=== PATIENT | female | born 1965 | race African-American/Black ===

== ENCOUNTER 2023-11-14 13:02 | Outpatient (AMB) | payer OTHER, SELFPAY ==
--- NOTE | 2023-11-14 13:33 | A.OFFPC_ITS ---
Vital Signs 11/14/23 13:36 Height 5 ft 10.5 in Weight 176 lb BMI 24.9 BP 126/80 Blood Pressure Location Lt brachial Position Sitting Pulse 87 Pulse Source Pulse Oximeter Intake Visit Reasons: Annual PE Intake Note: Pt is here today for PE. Allergies No Known Allergies Allergy (Verified 11/14/23 13:40) Medication List - Last Reconciled 11/14/23 by Marina Ruiz MD Symbicort 160-4.5 mcg/actuation (budesonide-formoterol) 2 puffs inhalation BID NS Ventolin HFA 90 mcg/actuation (albuterol sulfate) 2 puffs inhalation Q6H PRN NS Tobacco use date assessed: 11/14/23 Dental Screening Dental Screen Date: 11/14/23 Did you have a dental visit in the last 12 months?: No Did you have a dental problem in the last 6 months where you did not have access to dental care?: Yes Was dental information given to patient?: Yes HPI Annual PE HPI Details Pt presents for PE. PFSH Medical History Normal pelvic exam Annual physical exam History of mammogram Goiter Chronic asthma COPD (chronic obstructive pulmonary disease) Asthma HTN (hypertension) Surgical History No pertinent past surgical history Social History Housing: House Patient Tobacco Use Status: Former Tobacco user Years Smoked: 30 years e-Cigarette/Vaping Use: Never Used service: No Current occupational status: employed Cognitive needs: No Hearing needs: No Vision needs: Yes Questionnaire PHQ-9 Over the last 2 weeks, how often have you been bothered by any of the following problems? 1. Little interest or pleasure in doing things: more than half the days 2. Feeling down, depressed, or hopeless: not at all 3. Trouble falling or staying asleep, or sleeping too much: several days 4. Feeling tired or having little energy: not at all 5. Poor appetite or overeating: several days 6. Feeling bad about yourself - or that you are a failure or have let yourself or your family down: not at all 7. Trouble concentrating on things, such as reading the newspaper or watching television: not at all 8. Moving or speaking so slowly that other people could have noticed. Or the opposite - being so fidgety or restless that you have been moving around a lot more than usual: not at all 9. Thoughts that you would be better off or of hurting yourself in some way: not at all Total score: 4 Depression Screening Interpretation: Negative Depression Screening Done: Yes Source: Developed by Drs. Quintin Gómez, Karyna Walton, Luis Escobedo and colleagues, with an educational lizzie from [employer]. Thrive Questionnaire Date Thrive assessed: 11/14/23 I am a: Patient What is your living situation today?: I have a steady place to live Within the past 12 months, did the food you bought not last and you didn't have the money to get more?: Never true Within the past 12 months, did you worry whether your food would run out before you got money to buy more?: Never true Do you have trouble paying for medicines?: No Do you have trouble getting transportation to medical appointments?: No Do you have trouble paying your heating and electricity bill?: No Do you have trouble taking care of your child, family member or friend?: No Do you have trouble with day-to-day activities such as bathing, preparing meals, shopping, managing finances, etc.?: No Are you currently unemployed and looking for a job?: No Are you interested in more education?: No Please select the resources that you would like help with: None THRIVE Score: 0 AUDIT C Alcohol Use Questionnaire (AUDIT-C) 1. How often do you have a drink containing alcohol?: Never 3. How often do you have six or more drinks on one occasion?: Never Total Score: 0 LANDRY-7 AMB Questionnaire LANDRY-7 Date LANDRY - 7 assessed: 11/14/23 Feeling nervous, anxious, or on edge: 0 = Not at all Not being able to stop or control worryin = Not at all Worrying too much about different things: 0 = Not at all Trouble relaxin = Not at all Being so restless that it is hard to sit still: 0 = Not at all Becoming easily annoyed or irritable: 0 = Not at all Feeling afraid as if something awful might happen: 0 = Not at all Total LANDRY-7 score (0-4 normal; 5-9 mild; 10-14 moderate; 15-21 severe): 0 Source: Developed by Drs. Quintin Gómez, Karyna Walton, Luis Escobedo and colleagues, with an educational lizzie from [employer]. ACT Questionnaire In the past 4 weeks, how much of the time did your asthma keep you from getting as much done at work, school or at home?: None of the time During the past 4 weeks, how often have you had shortness of breath?: Not at all During the past 4 weeks, how often did your asthma symptoms wake you up at night or earlier than usual in the morning?: Not at all During the past 4 weeks, how often have you had to use your rescue inhaler or nebulizer medication?: Not at all How would you rate your asthma control during the past 4 weeks?: Well controlled Score: 24 Review of Systems Const All systems reviewed & are unremarkable except as noted in HPI and below Reports no additional complaints Eyes Reports no additional complaints ENT Reports no additional complaints Card Reports no additional complaints Resp Reports no additional complaints GI Reports no additional complaints Reports no additional complaints Physical exam (Primary Care) Vital Signs: Last Vital Signs Pulse 87 11/14/23 13:36 BP 126/80 11/14/23 13:36 BMI result Body Mass Index 24.9 Tobacco/Smoking Status: Tobacco use Status Tobacco use date assessed 11/14/23 11/14/23 13:41 Patient Tobacco Use Status Former Tobacco user 11/14/23 13:33 e-Cigarette/Vaping Use Never Used 11/14/23 13:33 PHQ-9: PHQ-9 Score PHQ-9: Total score 4 11/14/23 14:23 Depression Screening Interpretation: Negative Thrive Assessment: Date of Thrive Assessment Date Thrive assessed 11/14/23 11/14/23 14:23 Const General: no acute distress HENMT Head: Yes normal to inspection General nose exam: Normal external nose present Face and sinus: Yes normal facial exam Mouth: Normal oral and palatal mucosa present Eyes General: appearance normal, both eyes and all related structures Neck Neck: Yes no lymphadenopathy and Yes supple Resp Effort & Inspection: normal respiratory effort Auscultation: clear to auscultation bilaterally Cardio Rhythm: regular rhythm Heart sounds: S1 normal heart sound present and S2 normal heart sound present GI Inspection: Yes normal to inspection Palpation (GI): Soft to palpation Percussion: Yes normal to percussion Auscultation: normal bowel sounds Assessment and Plan Assessment & Plan (1) Goiter: Comment: monika Gonsalves 09[birth year]20, retired Code(s): E04.9 - Nontoxic goiter, unspecified Plan: Check thyroid ultrasound and TSH level (2) Annual physical exam: Code(s): Z00.00 - Encounter for general adult medical examination without abnormal findings Plan: Well-balanced diet regular physical activity discussed with the patient she will schedule mammogram. Cologuard will be sent and she is up-to-date with the Pap by internet webmaster (3) COPD (chronic obstructive pulmonary disease): Code(s): J44.9 - Chronic obstructive pulmonary disease, unspecified Plan: Continue Symbicort and ProAir as needed Orders: Orders Comprehensive [place]. Panel Fast Today E04.9 - Nontoxic goiter, unspecified, J44.9 - Chronic obstructive pulmonary disease, unspecified, Z00.00 - Encounter for general adult medical examination without abnormal findings Hemoglobin A1c Today E04.9 - Nontoxic goiter, unspecified, J44.9 - Chronic obstructive pulmonary disease, unspecified, Z00.00 - Encounter for general adult medical examination without abnormal findings Microalbumin, Random (w Creat) Today E04.9 - Nontoxic goiter, unspecified, J44.9 - Chronic obstructive pulmonary disease, unspecified, Z00.00 - Encounter for general adult medical examination without abnormal findings US thyroid Today E04.9 - Nontoxic goiter, unspecified Lipid Panel Today E04.9 - Nontoxic goiter, unspecified, J44.9 - Chronic obstructive pulmonary disease, unspecified, Z00.00 - Encounter for general adult medical examination without abnormal findings TSH reflex Free T4 Today E04.9 - Nontoxic goiter, unspecified, J44.9 - Chronic obstructive pulmonary disease, unspecified, Z00.00 - Encounter for general adult medical examination without abnormal findings Referrals Cologuard Test Z12.11 - Encounter for screening for malignant neoplasm of colon, Z12.12 - Encounter for screening for malignant neoplasm of rectum Medications: Changed From Symbicort 160-4.5 mcg/actuation (budesonide-formoterol) please complete fasting blood work 2 puffs inhalation BID 30.6 grams 0RF NS To Symbicort 160-4.5 mcg/actuation (budesonide-formoterol) 2 puffs inhalation BID 30.6 grams 6RF NS Refilled Ventolin HFA 90 mcg/actuation (albuterol sulfate) 2 puffs inhalation Q6H PRN 18 ea 4RF for wheezing NS Coding Level of Care Code Est Pt Prev Care 40-64y(40963) Diagnoses Goiter E04.9 Annual physical exam Z00.00 COPD (chronic obstructive pulmonary disease) J44.9
[2023-11-14 13:36] VITALS: BP 126/80; PULSE 87; BMI 24.9
== END 2023-11-14 14:22 | disposition home or self-care (01) ==
PROVIDERS: PCP Internal Medicine; Visit Provider Internal Medicine
DX: E04.9 Nontoxic goiter, unspecified (principal); Z00.00 Encounter for general adult medical examination without abnormal findings; J44.9 Chronic obstructive pulmonary disease, unspecified
CPT/HCPCS: 99396

== ENCOUNTER 2023-11-27 10:03 | Outpatient (REF) | payer OTHER, SELFPAY ==
[2023-11-27 13:24] LABS: MANUAL DIFF FLAG NO
[2023-11-27 13:42] LABS: Basophils Percent Auto 0.4 % (0-2); Eosinophils Absolute Auto 0.1 X10*3/uL (0.0-0.4); Eosinophils Percent Auto 1.4 % (0-4); Hematocrit 34.5 % (37.0-47.0); Imm Gran Abs Auto 0.03 X10*3/uL (0.00-0.03); Imm Gran Pct Auto 0.4 % (0.0-0.4); Lymphocytes Absolute Auto 2.4 X10*3/uL (1.2-4.9); Lymphocytes Percent Auto 30.6 % (20-40); Mean Corpuscular HGB Conc 31.9 g/dl (31.0-35.0); Mean Corpuscular Hemoglobin 23.5 pg (27.0-33.0); Mean Corpuscular Volume 73.7 fL (80.0-98.0); Mean Platelet Volume 10.1 fL (9.4-12.3); Monocytes Absolute Auto 0.8 X10*3/uL (0.1-1.2); Monocytes Percent Auto 10.1 % (2-11); Neutrophils Absolute Auto 4.5 x10*3/uL (2.0-8.3); Neutrophils Percent Auto 57.1 % (45-73); Platelet Count 315 X10*3/uL (160-400); Red Blood Count 4.68 X10*6/uL (4.20-5.50); Red Cell Distribution Width 15.6 % (11.0-16.0); White Blood Count 7.9 X10*3/uL (4.8-10.8)
[2023-11-27 13:59] LABS: Estimated Average Glucose 111 mg/dL; Hemoglobin A1c % 5.5 % (<6.0)
[2023-11-27 14:05] LABS: Alanine Aminotransferase 15 U/L (0-31); Albumin Level 4.4 g/dL (3.5-5.0); Alkaline Phosphatase 57 U/L (39-117); Anion Gap 14 (12-20); Aspartate Amino Transferase 19 U/L (5-31); Bilirubin Total 0.4 mg/dL (0.0-1.0); Blood Urea Nitrogen 17 mg/dL (9-16); Carbon Dioxide 23 mmol/L (22-29); Chloride 111 mmol/L (96-108); Cholesterol 223 mg/dL (<200); Estimated Glomerular Filt Rate > 60; Glucose Fasting 88 mg/dL (60-99); HDL Cholesterol 66 mg/dL (>40); LDL Cholesterol Calculated 146 mg/dL (<100); Potassium 3.9 mmol/L (3.3-5.1); Sodium 144 mmol/L (135-145); Total Protein 7.2 g/dL (6.5-8.0); Triglycerides 59 mg/dL (<150)
[2023-11-27 14:20] LABS: Microalbum/Creatinine Ratio Ur 7.9 ug/mg cr (<30)
[2023-11-27 14:22] LABS: TSH reflex Free T4 3.23 uIU/mL (0.32-4.0)
== END 2023-11-27 10:04 | disposition home or self-care (01) ==
LOC: HO.HMGCLDS 10:03
PROVIDERS: PCP Internal Medicine; Visit Provider Internal Medicine
DX: Z00.00 Encounter for general adult medical examination without abnormal findings (principal); E04.9 Nontoxic goiter, unspecified; J44.9 Chronic obstructive pulmonary disease, unspecified
CPT/HCPCS: 36415; 80053; 80061; 82043; 82570; 83036; 84443; 85025

== ENCOUNTER 2023-12-11 10:32 | Outpatient (REF) | payer OTHER, SELFPAY ==
--- NOTE | ~2023-12-11 | US_ITS ---
EXAMINATION: US THYROID CLINICAL INFORMATION: Nontoxic goiter, unspecified. COMPARISON: None available. TECHNIQUE: Linear transducer cortez-scale and color Doppler examination with attention to the region of the thyroid. FINDINGS: SIZE: Measurements of the thyroid lobes and nodules are given in sagittal, anteroposterior and transverse dimensions respectively. Right Thyroid Lobe: 6.2 x 2.4 x 1.6 cm, volume 12.2 mL. Parenchyma: The gland echotexture is homogeneous. Thyroid vascularity is normal. Left Thyroid Lobe: 5.2 x 1.3 x 2.0 cm, volume 7.2 mL. Parenchyma: The gland echotexture is homogeneous. Thyroid vascularity is normal. Isthmus: 0.9 cm in maximum AP dimension. Estimated total number of nodules greater than or equal to 1 cm: 0. Flatbed Driver nodules are described as follows: 1. Location: Right upper pole. Size: 0.8 x 0.4 x 0.7 cm, volume 0.10 mL. Nodule characteristics: Composition: Cystic(0). ACR TI-RADS total points: 0 ACR TI-RADS category: 1 NODES: No lymphadenopathy is seen in the tissue surrounding the thyroid gland. US/US thyroid IMPRESSION: 0.8 cm right TR1 thyroid nodule. Right lobe larger than left thyroid lobe. ACR TI-RADS RECOMMENDATION REFERENCE: Ultrasound-guided fine-needle aspiration, followup ultrasound, no further follow up. * TR1 (0 point) and TR2 (2 points): No FNA or follow up. * TR3 (3 points): FNA if more than or equal to 2.5 cm in maximum dimension, followup ultrasound in 1, 3 and 5 years if 1.5 to 2.4 cm in maximum dimension. * TR4 (4-6 points): FNA if more than or equal to 1.5 cm in maximum dimension, followup ultrasound in 1, 2, 3 and 5 years if 1 to 1.4 cm in maximum dimension. * TR5 (more than or equal to 7 points): FNA if more than or equal to 1 cm in maximum dimension, followup ultrasound every year for 5 years if 0.5 to 0.9 cm in maximum dimension. * TR3, TR4 or TR5 nodules that are below the size threshold for followup receive no follow up.
== END 2023-12-11 10:33 | disposition home or self-care (01) ==
LOC: HO.HMGCX 10:32
PROVIDERS: PCP Internal Medicine; Visit Provider Internal Medicine
DX: E04.9 Nontoxic goiter, unspecified (principal)
CPT/HCPCS: 76536

== ENCOUNTER 2024-09-16 11:07 | Outpatient (REF) | payer OTHER, SELFPAY ==
[2024-09-16 13:02] LABS: MANUAL DIFF FLAG NO
[2024-09-16 13:25] LABS: Basophils Percent Auto 0.5 % (0-2); Eosinophils Absolute Auto 0.1 X10*3/uL (0.0-0.4); Hematocrit 39.5 % (37.0-47.0); Hemoglobin 12.6 g/dl (12.0-16.0); Imm Gran Abs Auto 0.02 X10*3/uL (0.00-0.03); Imm Gran Pct Auto 0.3 % (0.0-0.4); Lymphocytes Absolute Auto 1.7 X10*3/uL (1.2-4.9); Mean Corpuscular HGB Conc 31.9 g/dl (31.0-35.0); Mean Corpuscular Hemoglobin 23.2 pg (27.0-33.0); Mean Corpuscular Volume 72.9 fL (80.0-98.0); Mean Platelet Volume 10.1 fL (9.4-12.3); Monocytes Absolute Auto 0.6 X10*3/uL (0.1-1.2); Monocytes Percent Auto 10.4 % (2-11); Neutrophils Absolute Auto 3.6 x10*3/uL (2.0-8.3); Neutrophils Percent Auto 59.8 % (45-73); Platelet Count 351 X10*3/uL (160-400); Red Blood Count 5.42 X10*6/uL (4.20-5.50); Red Cell Distribution Width 15.3 % (11.0-16.0)
[2024-09-16 13:46] LABS: Alanine Aminotransferase 27 U/L (0-31); Albumin Level 4.8 g/dL (3.5-5.0); Alkaline Phosphatase 74 U/L (39-117); Anion Gap 14 (12-20); Aspartate Amino Transferase 25 U/L (5-31); Bilirubin Total 0.2 mg/dL (0.0-1.0); Blood Urea Nitrogen 21 mg/dL (9-16); Calcium 9.9 mg/dL (8.4-10.2); Carbon Dioxide 26 mmol/L (22-29); Chloride 106 mmol/L (96-108); Estimated Glomerular Filt Rate 58; Glucose Random 94 mg/dL (60-115); Potassium 4.8 mmol/L (3.3-5.1); Sodium 141 mmol/L (135-145); Total Protein 8.3 g/dL (6.5-8.0)
[2024-09-16 14:06] LABS: Vitamin D 25-OH Total 10.5 ng/mL (>30)
[2024-09-16 14:26] LABS: Vitamin B12 405 pg/mL (200-900)
== END 2024-09-16 11:08 | disposition home or self-care (01) ==
LOC: HO.HMGCLDS 11:07
PROVIDERS: PCP Internal Medicine; Visit Provider Internal Medicine
DX: R00.2 Palpitations (principal)
CPT/HCPCS: 36415; 80053; 82306; 82607; 82746; 84443; 85025; 96127; 99212

== ENCOUNTER 2024-09-16 11:07 | Outpatient (AMB) | payer OTHER, SELFPAY ==
[2024-09-16 11:14] VITALS: BP 124/74; PULSE 87; RESP 18; TEMP 36.7; O2SAT 96; BMI 23.6
--- NOTE | 2024-09-16 11:14 | A.OFFPC_ITS ---
Vital Signs 09/16/24 11:14 Height 5 ft 10.5 in Weight 167 lb BMI 23.6 BP 124/74 Blood Pressure Location Lt brachial Position Sitting Respiration 18 Pulse 87 Pulse Source Pulse Oximeter Temp 98.1 F Temp Source Oral Pulse Oximetry (%) 96 Oxygen Delivery Method Room Air Intake Visit Reasons: Followup palpiations Intake Note: Pt is here today for a follow up visit on palpitations. Allergies amoxicillin Adverse Reaction (Verified 09/16/24 11:17) yeast infection Tobacco use date assessed: 09/16/24 Dental Screening Dental Screen Date: 09/16/24 Did you have a dental visit in the last 12 months?: Yes Did you have a dental problem in the last 6 months where you did not have access to dental care?: No Was dental information given to patient?: Patient has dentist HPI Followup palpiations HPI Details Pt c/o palpitations and irregular heart beats skipping beats on and off 3 x since last week, symptoms are not related to physical activity and last up to 20 min. Patient denies chest pain, shortness or breath, pleurisy, nausea vomiting diaphoresis related to the symptoms. she denies being under lot of stress or change in sleeping pattern or diet. Patient had similar symptoms last year , was seen in the ER and had negative workup. 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 [facility] Medical History Normal pelvic exam Annual physical exam History of mammogram Goiter Chronic asthma COPD (chronic obstructive pulmonary disease) Asthma HTN (hypertension) Surgical History No pertinent past surgical history Social History Housing: House Patient Tobacco Use Status: Former Tobacco user Years Smoked: 30 years e-Cigarette/Vaping Use: Never Used service: No Current occupational status: employed Cognitive needs: No Hearing needs: No Vision needs: Yes Questionnaire PHQ-9 Over the last 2 weeks, how often have you been bothered by any of the following problems? 1. Little interest or pleasure in doing things: more than half the days 2. Feeling down, depressed, or hopeless: not at all 3. Trouble falling or staying asleep, or sleeping too much: not at all 4. Feeling tired or having little energy: not at all 5. Poor appetite or overeating: not at all 6. Feeling bad about yourself - or that you are a failure or have let yourself or your family down: not at all 7. Trouble concentrating on things, such as reading the newspaper or watching television: not at all 8. Moving or speaking so slowly that other people could have noticed. Or the opposite - being so fidgety or restless that you have been moving around a lot more than usual: not at all 9. Thoughts that you would be better off or of hurting yourself in some way: not at all Total score: 2 Depression Screening Interpretation: Negative Depression Screening Done: Yes 17572 - PHQ-9 Billing: Yes Source: Developed by Drs. Quintin Gómez, Karyna Walton, Luis Escobedo and colleagues, with an educational lizzie from [employer]. Thrive Questionnaire Date Thrive assessed: 09/16/24 I am a: Patient What is your living situation today?: I choose not to answer this question Within the past 12 months, did the food you bought not last and you didn't have the money to get more?: I choose not to answer this question Within the past 12 months, did you worry whether your food would run out before you got money to buy more?: I choose not to answer this question Do you have trouble paying for medicines?: I choose not to answer this question Do you have trouble getting transportation to medical appointments?: I choose not to answer this question Do you have trouble paying your heating and electricity bill?: I choose not to answer this question Do you have trouble taking care of your child, family member or friend?: I choose not to answer this question Do you have trouble with day-to-day activities such as bathing, preparing meals, shopping, managing finances, etc.?: I choose not to answer this question Are you currently unemployed and looking for a job?: I choose not to answer this question Are you interested in more education?: I choose not to answer this question Please select the resources that you would like help with: None Currently or been in a relationship where the following occur: I choose not to answer THRIVE Score: 0 AUDIT C Alcohol Use Questionnaire (AUDIT-C) 1. How often do you have a drink containing alcohol?: Never 3. How often do you have six or more drinks on one occasion?: Never Total Score: 0 LANDRY-7 AMB Questionnaire LANDRY-7 Date LANDRY - 7 assessed: 09/16/24 Feeling nervous, anxious, or on edge: 0 = Not at all Not being able to stop or control worryin = Not at all Worrying too much about different things: 0 = Not at all Trouble relaxin = Not at all Being so restless that it is hard to sit still: 0 = Not at all Becoming easily annoyed or irritable: 0 = Not at all Feeling afraid as if something awful might happen: 0 = Not at all Total LANDRY-7 score (0-4 normal; 5-9 mild; 10-14 moderate; 15-21 severe): 0 Source: Developed by Drs. Quintin Gómez, Karyna Walton, Luis Escobedo and colleagues, with an educational lizzie from [employer]. LANDRY-7 Assessment Billing LANDRY-7 Assessment Tool: LANDRY-7 Assessment 01971 Review of Systems Const All systems reviewed & are unremarkable except as noted in HPI and below Eyes Reports no additional complaints ENT Reports no additional complaints Card Reports no additional complaints Resp Reports no additional complaints GI Reports no additional complaints Reports no additional complaints Physical exam (Primary Care) Vital Signs: Last Vital Signs Temp 98.1 F 09/16/24 11:14 Pulse 87 09/16/24 11:14 Resp 18 09/16/24 11:14 BP 124/74 09/16/24 11:14 Pulse Ox 96 09/16/24 11:14 Oxygen Delivery Method Room Air 09/16/24 11:14 BMI result Body Mass Index 23.6 Tobacco/Smoking Status: Tobacco use Status Tobacco use date assessed 09/16/24 09/16/24 11:20 Patient Tobacco Use Status Former Tobacco user 09/16/24 11:20 e-Cigarette/Vaping Use Never Used 09/16/24 11:20 PHQ-9: PHQ-9 Score PHQ-9: Total score 2 09/16/24 11:20 Depression Screening Interpretation: Negative Thrive Assessment: Date of Thrive Assessment Date Thrive assessed 09/16/24 09/16/24 11:20 Currently or been in a relationship where the following occur: I choose not to answer Const General: no acute distress HENMT Head: Yes normal to inspection Ears: hearing grossly normal bilaterally Eyes General: appearance normal, both eyes and all related structures Resp Effort & Inspection: normal respiratory effort Auscultation: clear to auscultation bilaterally Cardio Rhythm: regular rhythm Heart sounds: S1 normal heart sound present and S2 normal heart sound present GI Inspection: Yes normal to inspection Palpation (GI): Soft to palpation Percussion: Yes normal to percussion Auscultation: normal bowel sounds Coding Level of Care Code Est Pt Level 3 (93408) Diagnoses Palpitations R00.2 Additional Codes LANDRY-7 Assessment Billing - LANDRY-7 Assessment Tool: LANDRY-7 Assessment 56787 ([id number]) PHQ-9 - 15055 - PHQ-9 Billing: Yes ([id number]) Assessment & Plan Assessment & Plan (1) Palpitations: Code(s): R00.2 - Palpitations Category: Medical Plan: EKG showed normal sinus rhythm no ST-T changes. Obtain 3 day Holter and echocardiogram patient will have a blood work including TSH CBC and comprehensive panel. She will follow-up in 1 month Orders: Orders CA echo transthoracic complete Today R00.2 - Palpitations ECG 3 day holter monitor Today R00.2 - Palpitations Complete Blood Count Auto Diff Today R00.2 - Palpitations TSH reflex Free T4 Today R00.2 - Palpitations Vitamin B12 and Folate Today R00.2 - Palpitations Comprehensive Met. Panel Today R00.2 - Palpitations Vitamin D 25-OH Total Today R00.2 - Palpitations
--- OUTSIDE RECORDS SUMMARY | 2024-09-16 13:25 | XMS_ITS | Clinical Summary ---
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 Role Phone Unavailable Primary Care Provider Unavailabl e Social History Tobacco Use Types Packs/Day Years Used Date Smoking Tobacco: Never Assessed Comments Unknown Sex and Gender Information Value Date Recorded Sex Assigned at Not on file Legal Sex Female 8:44 PM EST Gender Identity Not on file Sexual Orientation Not on file Plan of Treatment Health Maintenance Due Date Last Done Comments DTaP,Tdap,and Td Vaccines (1 - Tdap) 02/21/1983 Cervical Cancer Screening: P ap Smear 02/21/1985 Pneumococcal Vaccine: 50+ Ye ars (1 of 1 - PCV) 02/21/2014 Zoster Vaccines (1 of 2) 02/21/2014 Colorectal Cancer Screening: Colonoscopy 06/03/2022 Depression Screening 06/03/2022 HIV Screening 06/03/2022 Hepatitis C Screening 06/03/2022 Social Influencers of Health Screening 06/03/2022 Breast Cancer Screening 08/14/2023 08/14/2021 COVID-19 Vaccine ( - 2023-2 5 season) 2024 Influenza Vaccine (#1) 2024 RSV Immunization Patients 60 + Years Old (1 - 1-dose 75+ series) 02/21/2039 HIB Vaccines Aged Out No longer eligi ble based on patient's age to complete this topic HPV Vaccines Aged Out No longer eligi ble based on patient's age to complete this topic Hepatitis A Vaccines Aged Out No long er eligible based on patient's age to complete this topic Hepatitis B Vaccines Aged Out No long er eligible based on patient's age to complete this topic IPV Vaccines Aged Out No longer eligi ble based on patient's age to complete this topic MMR Vaccines Aged Out No longer eligi ble based on patient's age to complete this topic Meningococcal ACWY Vaccine Aged Out N o longer eligible based on patient's age to complete this topic Meningococcal B Vacine Aged Out No lo nger eligible based on patient's age to complete this topic Pneumococcal Vaccine: Pediat rics (0 to 5 Years) and At-Risk Patients (6 to 64 Years) Aged Out No longer eligi ble based on patient's age to complete this topic RSV Immunization Patients Un yaneth 20 months Aged Out No longer eligible b ased on patient's age to complete this topic Varicella Vaccines Aged Out No longer eligible based on patient's age to complete this topic Procedures Procedure Name Priority Date/Time Associated Diagnosis Comments [facility] SCREENING DIGITAL Routine 08/14/2021 12:15 PM EST Encounter for screening mammogram for malignant neoplasm of breast from Last 3 Months or Most Recently Relevant to Health Maintenance Results * [facility] SCREENING DIGITAL (08/14/2021 12:15 PM EST) Anatomical Region Laterality Modality Mammography 08/11/2021 9:20 AM EST Narrative 08/14/2021 12:15 PM EST [facility] Diagnostic Imaging Department [address] [place] [address] Patient: ??RONALDO GUILLEN ?/Age/Sex: 1965 - 56 - F Unit#: ??[id number] ? Location/Status: ??SPDIMAM/REG CLI ? Mnemonic/Ordering Site: ??DIGSC/SPMAM Ordering Physician: ??HANK RUIZ MD Mehdi Screening Digital - 08/13/21838 History: Bilateral breast cancer screening. Technique: ??Digital mammography. Conventional CC and MLO projections with tomosynthesis MLO views and computer aided detection. Comparison: [facility] 09/26/2016 through 06/18/2010. Findings: ?? Breast tissue consists of fatty and fibroglandular elements (category b density) bilaterally (as calculated by [employer] Only[employer] software). There is no suspicious group of microcalcifications, mass, architectural distortion or suspicious change in breast tissue density. Impression: No evidence of malignancy. Breast cancer, if present, is more likely to be diagnosed at a smaller size and earlier stage with more frequent intervals of screening. ??Recommend annual or biennial mammography. BIRADS category 1; negative study, 3341F 39917, 19788 Note: Patient information entered into a reminder system with a target due date for the next mammogram: ??CPT II 7025F Dictating Physician: ??JAE PANIAGUA MD Electronically Signed by: ??JAE PANIAGUA MD Dic Date/Time: ??08/14/21 1211 Sign date/Time: ??08/14/21 1215 Procedure Note Jae Paniagua MD - 06/21/2022 [facility] Diagnostic Imaging Department [address] [place] [address] Patient: GUILLENRONALDOO.B./Age/Sex: 1965 - 56 - F Unit#: [id number] Location/Status: SPDIMA/[facility] CLI Mnemonic/Ordering Site: [facility] Ordering Physician: HANK RUIZ MD Mehdi Screening Digital - 08/13/21 - 39 History: Bilateral breast cancer screening. Technique: Digital mammography. Conventional CC and MLO projectionswith tomosynthesis MLO views and computer aided detection. Comparison: [facility] 09/26/2016 through 06/18/2010. Findings: Breast tissue consists of fatty and fibroglandular elements (category b density) bilaterally (as calculated by [employer]ta[employer]ware). There is no suspicious group of microcalcifications, mass, architectural distortion or suspicious change in breast tissue density. Impression: No evidence of malignancy. Breast cancer, if present, is more likely to be diagnosed at a smallersize and earlier stage with more frequent intervals of screening. Recommend annualor biennial mammography. BIRADS category 1; negative study, 3341F 30693, 97333 Note: Patient information entered into a reminder system with a target duedate for the next mammogram: CPT II 7025F Dictating Physician: JAE PANIAGUA MD Electronically Signed by: JAE PANIAGUA MD Dic Date/Time: 08/14/21 1211 Sign date/Time: 08/14/21 1215 Hank Ruiz MD IMG BI PROCEDURES Final Result from Last 3 Months or Most Recently Relevant to Health Maintenance
--- OUTSIDE RECORDS SUMMARY | 2024-09-16 13:25 | XMS_ITS | Data Portability ---
Author Organization [facility], [address] Address [address] [place] [address] Assessment No assessment recorded. Plan of Treatment Reminders Order Date Submit Date Provider Last Modified By Organization Details Last Modified Time Details Appointments None recorded. Lab urinalysis, dipstick 2022 023 [email or web address], [address] [place], [address], 3 09:34:13 culture, urine 2022 023 [place] [facility] [address] [place] [address], [place], [address], 3 06:08:40 Referral None recorded. Procedures None recorded. Surgeries None recorded. Imaging None recorded. Medication Orders Diflucan 150 mg tablet 2022 023 [id number], [address] [place], [address], 3 09:34:15 amoxicillin 875 mg-potassiu m clavulanate 125 mg tablet 2022 023 yestrella 5 [id number], [address] [place], [address], 3 08:47:27 prednisone 10 mg tablet 2022 023 yestrella 5 [id number], [address] [place], [address], 3 08:47:23 Patient TargetsNo targets recorded. Patient Instructions Encounter Date Encounter Id Patient Instructions Last Modified By Organization Details Last Modified Time 10/19/2022 [id number] Based on your presentation and exam, you are being diagnosed with Sinusitis. Rhinosinusitis is most often viral and will resolve on its own in 7-10 days. Symptoms that last longer than 2 weeks an antibiotic could be considered. Based on your presentation, and antibiotic was written. You were prescribed Prednisone - Here is some general Information regarding this medication. 1. Make sure you take with Food 2. Do not take right before bedtime -this should be taken during the day because it may make you a little more wired. May keep you from sleeping. 3. Prednisone will increase glucose -so if you are a diabetic then you will need to monitor your glucose closely. Please d/c if glucose goes above 300. 4. Do not take this medication with Ibuprofen The following are my recommendations to help your symptoms and to allow your condition to improve: 1. Drink plenty of fluids while you are ill- stay hydrated 2. Rest - don't overexert yourself - this includes sports and any gym routines. 3. I suggest taking an antihistamine - like Claritin, Zyrtec, or Benedryl 4. If you take OTC cold medication I would recommend Tea-Selzer Cold/Cough. 5. Mucinex with a lot of water is ok - if you are having trouble clearing your nasal passages of mucous. However, if you start to cough then discontinue - this can increase coughing due to a watery post nasal drip. 6. Saline Nasal [place] is recommended. Since an antibiotic was prescribed you need to complete the full course - this is important so you don't develop any antibiotic resistance to future infections. I advise taking a Probiotic like Florastor since you are on an antibiotic - this will help you re-colonize your body with the good bacteria. Typically, it will take 6 months for you to restore your normal body rhea after an antibiotic. Don't hesitate to be seen again if you develop: 1. Fever > 100.5 2. Worsening Headache 3. Stiff Neck 4. Worsening Cough or Shortness of breath 5. Visual Changes. The antibiotic should start to work in 4-5 days. You may not notice immediate response. Thank you for using [facility] today, please feel free to contact our office if you have any questions or concerns. [email or web address] Not available 10/19/2022 15:23:00 Reason for Referral None Reported. Results Created Date Observation Date Name Description Value Unit Range Abnormal Flag Note LastModifiedBy Organization Detail LastModifiedTime 06/18/2006/19/2023 URINE CULTU RE, ROUTI NE urine culture, routine FINAL REPORT Not Available [facility] ([facility]) [address] [facility] [address], [place], [address], 06/20/2023 06:08:40 06/18/2006/19/2023 URINE CULTU RE, ROUTI NE result 1 NO GROWTH Not Available [facility] ([facility]) [address] [facility] [address], [place], [address], 06/20/2023 06:08:40 06/18/2006/18/2023 urina lysis , dipst ick Unknown Analyte Light Yellow Not Available [address] [place], [address], 06/18/2023 08:52:16 06/18/2006/18/2023 urina lysis , dipst ick Unknown Analyte Slight ly Cloudy Not Available [address] [place], [address], 06/18/2023 08:52:16 06/18/2006/18/2023 urina lysis , dipst ick Unknown Analyte Negati ve Not Available [address] [place], [address], 06/18/2023 08:52:16 06/18/2006/18/2023 urina lysis , dipst ick Unknown Analyte Negati ve Not Available [address] [place], [address], 06/18/2023 08:52:16 06/18/2006/18/2023 urina lysis , dipst ick Unknown Analyte Negati ve Not Available [address] [place], [address], 06/18/2023 08:52:16 06/18/2006/18/2023 urina lysis , dipst ick Unknown Analyte 1.010 Not Available [facility] [address] [place], [address], 06/18/2023 08:52:16 06/18/2006/18/2023 urina lysis , dipst ick Unknown Analyte Trace- intact Not Available [address] [place], [address], 06/18/2023 08:52:16 06/18/2006/18/2023 urina lysis , dipst ick Unknown Analyte 6.0 Not Available [facility] [address] [place], [address], 06/18/2023 08:52:16 06/18/2006/18/2023 urina lysis , dipst ick Unknown Analyte Negati ve Not Available [address] [place], [address], 06/18/2023 08:52:16 06/18/2006/18/2023 urina lysis , dipst ick Unknown Analyte 0.2 E.U./d L Not Available [address] [place], [address], 06/18/2023 08:52:16 06/18/2006/18/2023 urina lysis , dipst ick Unknown Analyte Negati ve Not Available [address] [place], [address], 06/18/2023 08:52:16 06/18/20 23 06/18/2023 urina lysis , dipst ick Unknown Analyte Negati ve Not Available [address] [place], [address], 06/18/2023 08:52:16 Result Notes None recorded. Problems Name Problem SNOMED Code Status Onset Date Resolution Date Notes Provider Name and Address Organization Details Recorded Time Asthma [id number] Active FERNANDA Duong - [facility] 10/19/2022 15:05:56 Notes:enlarge thyroid- board dolores hypothyroidism Problem Notes None recorded. Medical Equipment None Reported. Allergies No known drug allergies Medications Name Sig Start Date Stop Date Status Note LastModified by Organization Details LastModified Time prednisone 10 mg tablet 3 TABS DAILY X 3 DAYS, 2 TABS DAILY X 3 DAYS, 1 TAB DAILY X 3 DAYS 06/18 completed Not Available Not Available Not Available Diflucan 150 mg tablet take one tablet now , repeat in 72 hours 2022 active Not Available Not Available Not Avai lable amoxicillin 875 mg-potassiu m clavulanate 125 mg tablet TAKE 1 TABLET BY MOUTH TWICE A DAY FOR 10 DAYS 06/18 completed Not Available Not Available Not Available Ventolin HFA 90 mcg/actuati on aerosol inhaler PLEASE SEE ATTACHED FOR DETAILED DIRECTION S active Not Available Not Available No t Available Benadryl active Not Available Not Avai lable Not Available Symbicort 160 mcg-4.5 mcg/actuati on HFA aerosol inhaler 2 PUFF INHALED 2 TIMES A DAY PLEASE COMPLETE FASTING BLOOD WORK active Not Available Not Available No t Available Vitals Date Recorded Body height Body mass index (BMI) Body weight Pain severity - 0-10 verbal numeric rating [Score] - Reported Respiratory rate Heart rate Body temperature Oxygen saturation Oxygen saturation in Arterial blood by Pulse oximetry Systolic blood pressure Diastolic blood pressure Provider Name and Address Organization Details Last Updated DateTime 3 179.07 cm 25.2 kg/m2 97051.4 4 g 0 17 /min 98 /min 97.3 [degF] 99 % 99 % 137 mm[Hg] 73 mm[Hg] MADELINE MICHAEL - [facility] 04/20/202 3 15:09:12 Date Recorded Body height Body mass index (BMI) Body weight Pain severity - 0-10 verbal numeric rating [Score] - Reported Body temperature Respiratory rate Heart rate Systolic blood pressure Diastolic blood pressure Provider Name and Address Organization Details Last Updated DateTime 3 179.07 cm 24.9 kg/m2 50664.2 6 g 0 97.9 [degF] 19 /min 82 /min 134 mm[Hg] 79 mm[Hg] Ashlee Alicia PA - [facility] 3 08:54:24 Social History Question Answer Notes LastModified by Organizat ion Details LastModified Time Tobacco Smoking Status Current Every Day Smoker MADELINE viramontes PA - [facility] 10/19/2022 15:06:27 What Is Your Level Of Alcohol Consumption? None Information not available 10/19/2022 Have You Had A Flu Shot This Season? No Does Not Do The Flu Vaccines Information not available 06/18/2023 Have You Had Direct Contact, Or Contact During Intimacy, With Monkeypox Rash, Scabs, Or Body Fluids From A Person With Monkeypox? No Information not available 10/19/2022 What Was The Date Of Your Most Recent Tobacco Screening? 06/18/2023 Information not available 06/18/2023 How Much Tobacco Do You Smoke? 0.5 PPD Information not available 10/19/2022 Do You Use Any Illicit Or Recreational Drugs? No Information not available 10/19/2022 Have You Recently Traveled Abroad? No Information not available 10/19/2022 Do You Or Have You Ever Used Any Other Forms Of Tobacco Or Nicotine? No Information not available 10/19/2022 Sex: Unknown Functional Status None recorded. Mental Status None recorded. Family History Relationship Description Onset Age of this Age Resolved Age Notes LastModified by Organization Details LastModified Time Mother Diabetes mellitus [email or web address] Not available 06/18 08:50:54 Unspecified Relation Diabetes mellitus aunt [email or web address] Not available 06/18 08:51:09 Medical History No medical history recorded. Gynecological HistoryNo gynecological history recorded. Obstetrics History GPAL:G 0 P 0 0 0 0 Immunizations Vaccine Type Date Status Note Provider Nam e and Address Organization Details Recorded Time Tdap 05/02/2012 completed FERNANDA Clemente - [facility] 10/19/2022 15:04:53 Past Encounters Encounter ID Performer Location Encounter Start Date Encounter Closed Date Diagnosis/Indication Diagnosis SNOMED-CT Code Diagnosis ICD10 Code Diagnosis Note [id number] [address] [facility] [address] [facility] [place] [address] 09/10/2020 11:49:02 09/10/2020 13:54:19 [id number] FERNANDA MAK [address] [facility] [address] [facility] [place] [address] 10/19/2022 14:53:17 10/19/2022 15:25:08 Acute sinusitis 78109615 J01.90 Per your request - the prednisone to help with the facial pressure and wheezing. You mention that this is what your PCP usually gives you. Wheezing 38944066 R06.2 Take your Symbicort and Nebulizer at home. Follow up if you have anyShortne ss of BreathFeve rIncreased Wheezing. [id number] Karoline Huerta NP [address] [facility] [address] [facility] [place] [address] 06/18/2023 08:04:50 06/18/2023 09:35:57 Dysuria 87564640 R30.0 You are going to be treated for a Urinary Tract Infection. The following are recommenda tions to help with your symptoms and recovery:1 . Drink Plenty of fluids - Stay hydrated2. Finish full antibiotic course3. I recommend starting a Probiotic - I recommend Florastor4 . If you take Azo - this will help the burning and urgency feeling - just be aware it will turn your urine bright yellow. I would not hesitate to be seen again if you develop:1. Severe Back Pain2. Abdominal Pain3. Nausea and Vomiting4. Vaginal Discharge or Bleeding5. Fever > 101.0 You symptoms should improve within 72 hours for a typically UTI. If a urine culture was sent out to the lab for you we should get the results back within 4 days. This will be able to prove that your symptoms are caused by a UTI and it will also verify that the correct antibiotic was prescribed . Thank you for using [facility] - please don't hesistate to call our office if you have any questions or concerns. Health Concerns Section Related Observation LastModified by Organization Detai ls LastModified Time None Recorded Concern Status LastModified by Organization Details LastModified Time None Recorded Advance Directives Directive None Recorded Payers Encounter Date Sequence Insurance Name Policy Number Policy Camarena Covered Member ID Camarena Member ID Guarantor Name 09/10/2020 1 [facility] [id number] Twila Cota [id number] Twila Cota 10/19/2022 1 [facility] ([facility] KYUNG Cota [id number] Twila Cota 06/18/2023 1 [facility] ([facility] [place] KYUNG Cota [id number] Twila Cota Notes Date Note Type Note Provider Name and Address Organization Details Recorded Time 3 text/html Sinus Complaints UCReported bypatient.Location:left side; right side Associated Symptoms:no fever; no difficulty breathing; no nausea or vomiting; no sore throat;nasal discharge from both nostrils;nasal passage blockage bilaterally;cough Onset/Timing:initially started 3weeks ago; progressively worse over last 6days Context:worse with seasonal allergen exposure Alleviating factors:BenedrylNotes:The patient has bad allergies. She states that she has been fighting those for a while. She states in the last 6 days increased sinus pressure and congestion. Clogged. No drainage in your thought. Mucous has turn to a yellow color. The patient reports asthma in her 30's. Has been diagnosed with chronic bronchitis. Just is bring up mucous - yellow - loose. Rattle in the chest. The patient reports no ear pain or sore throat. FERNANDA MAK [address] [place], [address], PA - [facility] 10/19/2022 15:25:02 3 text/html UTI female UCReported bypatient.source of patient informationInformation obtained from patient; Patient arrived at Urgent Care ambulatory UTI Symptoms:no blood in the urine; no vaginal discharge; no pain in the flank; no fever/chills; no incontinence; no recurrent UTI;urgency;burning sensation during urination Severity:moderate Duration:started ; 2 weeks Modifying Factors:nothing gives relief UTI went across the street and was diagnosed with UTI. they gave you treatment, treatment failed. UTI symptoms still present. (1 month ago) went back about 2 weeks ago. with the same symptoms. Karoline Huerta NP [address] [place], [address], PA - [facility] 06/18/2023 09:34:53 OBGyn Episode No OBEpisode recorded.
== END 2024-09-16 12:09 | disposition home or self-care (01) ==
LOC: HO.HMCC 11:08
PROVIDERS: PCP Internal Medicine; Visit Provider Internal Medicine
DX: R00.2 Palpitations (principal)

== ENCOUNTER → 2024-10-08 08:55 | Outpatient (REF) | payer OTHER, SELFPAY ==
--- NOTE | 2024-10-08 08:58 | CA_ITS ---
Transthoracic Echocardiogram Patient (Last, First, Middle): Twila Cota, Gender: Female Date of : 1965 Age: 59 Procedure Date: 10/08/2024 Procedure Type: Transthoracic Echocardiogram Location: OP Height: 177.8 cm Weight: 75.75 kg BSA: 1.93 m2 Heart Rate: bpm BP: 124 / 74 mmHg Insurance Plan Specialist: DARRYL Referring MD: Marina Ruiz MD Regional Planner: Jorge Philip MD Symptoms: R00.2 - Palpitations Study Quality: Adequate ECG Rhythm: Sinus Conclusions: - 1. Normal LV ejection fraction of 65-70% with impaired relaxation filling pattern 2. Normal cardiac valvular Dopplers 3. Normal RV systolic pressure 4. No gross pericardial effusion Findings Left Ventricle Normal left ventricular size, thickness, and systolic function. The visually estimated ejection fraction is between 65-70%. Spectral Doppler is indicative of an impaired relaxation filling pattern. E/E prime ratio is between 8 and 15 consistent with indeterminate filling pressures. Right Ventricle Normal right ventricular cavity size and systolic function. Atria The left atrium is normal in size. There is no evidence of interatrial shunt. The right atrium is normal in size. Aortic Valve Normal aortic valve structure and function. There is no aortic valve stenosis. There is no aortic valve regurgitation. Mitral Valve Normal mitral valve structure and function. There is trace mitral valve regurgitation. There is no mitral valve stenosis. Pulmonic Valve The pulmonic valve is likely normal. Tricuspid Valve Normal tricuspid valve structure. There is trace tricuspid valve regurgitation. The right ventricular systolic pressure is normal. The right ventricular systolic pressure is 24 mmHg. Normal right atrial pressure. There is no evidence of pulmonary hypertension. Great Vessels All visible segments of the aorta are normal in size. The pulmonary artery was not well visualized. There is no dilatation of the ascending aorta measuring 3.20 cm. Venous The inferior vena cava is normal in size and collapses greater than 50% with inspiration. Pericardium/Pleural There is no evidence of pericardial effusion. Prior Study Comparison No prior study available for comparison. Measurements 2D Linear Measurements IVSd: 1.14 0.6-0.9/0.6-1.0 cm LVIDd: 3.82 3.9-5.3/4.2-5.9 cm LVIDd Index: 1.98 2.4-3.2/2.2-3.1 cm/m2 LVIDs: 2.15 2.0-3.6 cm LVPWd: 1.05 0.7-1.1 cm LA Diam: 4.00 2.7-3.8/3.0-4.0 cm LAIDs Index: 2.07 1.5-2.3 cm/m2 LV Mass: 167.79 67-162/88-224 g LV Mass Index: 86.94 43-95/49-115 g/m2 LVOT Diam: 2.10 3.0+(-)1.3 cm 2D Systolic Function EF 4C: 68.40 >55% EF 2C: 70.70 >55% EF BiP: 69.80 >55% Mitral Valve MV Pk E: 1.12 MV PK A: 1.09 MV Decel Time: 187.00 E/A: 1.00 E'Lateral: 7.94 E'Medial: 6.74 E/E' Med: 16.60 E/E' Lat: 14.10 PHT: 55.00 MVA PHT: 4.00 Decel [place]: 6.00 Aortic Valve AoV Pk Edy: 1.37 AoV Mn Edy: 0.95 AoV VTI: 0.34 AoV Pk Grad: 8.00 Aov Mn Grad: 4.00 PEREZ Cont.VTI: 2.90 LVOT LVOT Pk Edy: 1.19 LVOT Mn Edy: 0.84 LVOT VTI: 0.28 LVOT Pk Grad: 6.00 LVOT Mn Grad: 3.00 LVOT Diam: 2.10 LVOT Area: 3.46 Diastolic Function MV Pk E: 1.12 MV Pk A: 1.09 E/A: 1.00 E'Medial: 6.74 E/E' Med: 16.60 E' Laterial: 7.94 E/E' Lat: 14.10 Right Ventricle TAPSE (mm): 31.20 TVS' Edy: 15.20 Tricuspid Valve TR Pk Dey: 2.31 TR Pk Grad: 21.00 RA Press: 3.00 RVSP: 24.00 Great Vessels Aorta Sinus of Valsalva: 2.77 2.0-3.[address] Ridge: 2.52 1.7-3.4 cm Ao Asc: 3.20 2.1-3.4 cm Updated in Other Vendor System with Status of Final Jorge Philip MD electronically signed on 10/08/2024 11:27:41 AM with status of Final
--- OUTSIDE RECORDS SUMMARY | 2024-10-08 09:22 | XMS_ITS | Data Portability ---
Author Organization FERNANDA [facility], [address] Address [address] [place] [address] Assessment No assessment recorded. Plan of Treatment Reminders Order Date Submit Date Provider Last Modified By Organization Details Last Modified Time Details Appointments None recorded. Lab urinalysis, dipstick 2022 023 [email or web address] [address], [address] [place], [address], 3 09:34:13 culture, urine 2022 023 [facility], [address] [place] [address], [place], [address], 3 06:08:40 Referral None recorded. Procedures None recorded. Surgeries None recorded. Imaging None recorded. Medication Orders Diflucan 150 mg tablet 2022 023 [id number], [address] [place], [address], 3 09:34:15 amoxicillin 875 mg-potassiu m clavulanate 125 mg tablet 2022 023 yestrella 5 [id number], [address] [place], [address], 3 08:47:27 prednisone 10 mg tablet 2022 023 yestrella 5 [facility], [address] [place], [address], 3 08:47:23 Patient TargetsNo targets recorded. Patient Instructions Encounter Date Encounter Id Patient Instructions Last Modified By Organization Details Last Modified Time 10/19/2022 [id number] Based on your presentation and exam, you [...] watery post nasal drip. 6. Saline Nasal [place] is recommended. Since an antibiotic was prescribed [...] notice immediate response. Thank you for using [facility] today, please feel free to contact our office if you have any questions or concerns. [email or web address] Not available 10/19/2022 15:23:00 Reason for Referral None Reported. Results Created Date Observation Date Name Description Value Unit Range Abnormal Flag Note LastModifiedBy Organization Detail LastModifiedTime 06/18/2006/19/2023 URINE CULTU RE, ROUTI NE urine culture, routine FINAL REPORT Not Available [facility] ([facility]) [address] [facility], [place], [address], 06/20/2023 06:08:40 06/18/2006/19/2023 URINE CULTU RE, ROUTI NE result 1 NO GROWTH Not Available [facility] ([facility]) [address] [facility], [place], [address], 06/20/2023 06:08:40 06/18/2006/18/2023 urina lysis , dipst ick Unknown Analyte Light Yellow Not Available [address] [place], [address], 06/18/2023 08:52:16 06/18/2006/18/2023 urina lysis , dipst ick Unknown Analyte Slight ly Cloudy Not Available [address] [place], [address], 06/18/2023 08:52:16 06/18/2006/18/2023 urina lysis , dipst ick Unknown Analyte Negati ve Not Available [address] [place], [address], 06/18/2023 08:52:16 06/18/2006/18/2023 urina lysis , dipst ick Unknown Analyte Negati ve Not Available [address] [place], [address], 06/18/2023 08:52:16 06/18/2006/18/2023 urina lysis , dipst ick Unknown Analyte Negati ve Not Available [facility] [address] [address] [place], [address], 06/18/2023 08:52:16 06/18/2006/18/2023 urina lysis , dipst ick Unknown Analyte 1.010 Not Available [facility] [address] [place], [address], 06/18/2023 08:52:16 06/18/2006/18/2023 urina lysis , dipst ick Unknown Analyte Trace- intact Not Available [facility] [place], [address], 06/18/2023 08:52:16 06/18/2006/18/2023 urina lysis , dipst ick Unknown Analyte 6.0 Not Available [facility] [address] [place], [address], 06/18/2023 08:52:16 06/18/2006/18/2023 urina lysis , dipst ick Unknown Analyte Negati ve Not Available [address] [place], [address], 06/18/2023 08:52:16 06/18/2006/18/2023 urina lysis , dipst ick Unknown Analyte 0.2 E.U./d L Not Available [facility] [place], [address], 06/18/2023 08:52:16 06/18/2006/18/2023 urina lysis , dipst ick Unknown Analyte Negati ve Not Available [address] [place], [address], 06/18/2023 08:52:16 06/18/20 23 06/18/2023 urina lysis , dipst ick Unknown Analyte Negati ve Not Available [address] [place], [address], 06/18/2023 08:52:16 Result Notes None recorded. Problems Name Problem SNOMED Code Status Onset Date Resolution Date Notes Provider Name and Address Organization Details Recorded Time Asthma 620320837 Active FERNANDA Duong - [facility] 10/19/2022 [...] Updated DateTime 3 179.07 cm 25.2 kg/m2 18019.4 4 g 0 17 /min 98 /min [...] Updated DateTime 3 179.07 cm 24.9 kg/m2 17720.2 6 g 0 97.9 [degF] 19 /min [...] SNOMED-CT Code Diagnosis ICD10 Code Diagnosis Note [id number] [address] [facility] [address] [place] [address] 09/10/2020 11:49:02 09/10/2020 13:54:19 [id number] FERNANDA MAK [address] [facility] [address] [place] [address] 10/19/2022 14:53:17 10/19/2022 15:25:08 Acute sinusitis 95834327 J01.90 Per your request - the prednisone to help with the facial pressure and wheezing. You mention that this is what your PCP usually gives you. Wheezing 08580939 R06.2 Take your Symbicort and Nebulizer at home. Follow up if you have anyShortne ss of BreathFeve rIncreased Wheezing. [id number] Karoline Huerta NP [address] [facility] [address] [place] [address] 06/18/2023 08:04:50 06/18/2023 09:35:57 Dysuria [id number] R30.0 You are going to be treated [...] Camarena Member ID Guarantor Name 09/10/2020 1 [facility] [id number] Twila Cota [id number] Twila Cota 10/19/2022 1 [facility] KYUNG Cota [id number] Twila Cota 06/18/2023 1 [facility] KYUNG Cota [id number] Twila Cota Notes Date Note Type Note [...] throat. FERNANDA MAK [address] [place], [address], [place] - [facility] 10/19/2022 15:25:02 3 [...] Huerta NP [address] [place], [address], [place] - [facility] 06/18/2023 09:34:53 OBGyn Episode No OBEpisode recorded.
--- OUTSIDE RECORDS SUMMARY | 2024-10-08 09:22 | XMS_ITS | Clinical Summary ---
Author Organization [facility] ity Address [address] [place] [address] Care Team Providers Care Senior Director Of [employer] Name Role Phone Unavailable Primary Care Provider [...] 2024 Influenza Vaccine (#1) 2024 RSV Immunization Adult Patie nts (1 - 1-dose 75+ series) 02/21/2039 HIB [...] age to complete this topic Meningococcal B Vaccine Aged Out No l onger eligible based on patient's age to complete [...] Procedure Name Priority Date/Time Associated Diagnosis Comments [facility] SCREENING DIGITAL Routine 08/14/2021 12:15 PM EST Encounter for screening mammogram for malignant neoplasm of breast from Last 3 Months or Most Recently Relevant to Health Maintenance Results * [facility] SCREENING DIGITAL (08/14/2021 12:15 PM EST) Anatomical Region Laterality Modality Mammography 08/11/2021 9:20 AM EST Narrative 08/14/2021 12:15 PM EST [facility] Diagnostic Imaging Department [address] [place] [address] Patient: ??RONALDO GUILLEN ?/Age/Sex: 1965 - 56 - F Unit#: ??[id number] ? Location/Status: ??SPDIMAM/REG CLI ? Mnemonic/Ordering Site: ??DIGSC/SPMAM Ordering Physician: ??HANK RUIZ MD Mehdi Screening Digital - 08/13/21838 History: Bilateral breast cancer screening. Technique: ??Digital mammography. Conventional CC and MLO projections with tomosynthesis MLO views and computer aided detection. Comparison: [facility] 09/26/2016 through 06/18/2010. Findings: ?? Breast tissue consists of fatty and fibroglandular elements (category b density) bilaterally (as calculated by [employer] software). There is no suspicious group of microcalcifications, mass, architectural distortion or suspicious change in breast tissue density. Impression: No evidence of malignancy. Breast cancer, if present, is more likely to be diagnosed at a smaller size and earlier stage with more frequent intervals of screening. ??Recommend annual or biennial mammography. BIRADS category 1; negative study, 3341F 499[address], [address] Note: Patient information entered into a reminder system with a target due date for the next mammogram: ??CPT II 7025F Dictating Physician: ??JAE PANIAGUA MD Electronically Signed by: ??JAE PANIAGUA MD Dic Date/Time: ??08/14/21 1211 Sign date/Time: ??08/14/21 1215 Procedure Note Jae Paniagua MD - 06/21/2022 [facility] Diagnostic Imaging Department [address] [place], [place] [address] Patient: RONALDO GUILLEN D.O.B./Age/Sex: 1965 - 56 - F Unit#: [id number] Location/Status: SPDIMAM/[facility] CLI Mnemonic/Ordering Site: [facility] Ordering Physician: HANK RUIZ MD Mehdi Screening Digital - 08/13/21838 History: Bilateral breast cancer screening. Technique: Digital mammography. Conventional CC and MLO projectionswith tomosynthesis MLO views and computer aided detection. Comparison: [facility] 09/26/2016 through 06/18/2010. Findings: Breast tissue consists of fatty and fibroglandular elements (category b density) bilaterally (as calculated by [employer]). There is no suspicious group of microcalcifications, mass, architectural distortion or suspicious change in breast tissue density. Impression: No evidence of malignancy. Breast cancer, if present, is more likely to be diagnosed at a smallersize and earlier stage with more frequent intervals of screening. Recommend annualor biennial mammography. BIRADS category 1; negative study, 3341F [address], [address] Note: Patient information entered into a reminder system with a target duedate for the next mammogram: CPT II 7025F Dictating Physician: JAE PANIAGUA MD Electronically Signed by: JAE PANIAGUA MD Dic Date/Time: 08/14/21 1211 Sign date/Time: 08/14/21 1215 us Hank Ruiz MD IMG BI PROCEDURES Final Result from Last 3 Months or Most Recently Relevant to Health Maintenance
== END ==
LOC: HO.CARD 08:55
PROVIDERS: PCP Internal Medicine; Visit Provider Internal Medicine
DX: R00.2 Palpitations (principal)
CPT/HCPCS: 93242; 93306

== ENCOUNTER → 2024-10-08 08:58 | Outpatient (BNV) | payer OTHER, SELFPAY | PROVIDERS: PCP Internal Medicine; Visit Provider Internal Medicine Cardiovascular Disease | DX: I34.0 Nonrheumatic mitral (valve) insufficiency (principal); I36.1 Nonrheumatic tricuspid (valve) insufficiency | CPT/HCPCS: 93306 ==

== ENCOUNTER 2024-10-24 13:26 | Outpatient (AMB) | payer OTHER, SELFPAY ==
[2024-10-24 13:32] VITALS: BP 124/76; PULSE 94; RESP 18; TEMP 36.7; O2SAT 97; BMI 24.6
--- NOTE | 2024-10-24 13:32 | MHC.PC.OV ---
Vital Signs 10/24/24 13:32 Height 5 ft 10.5 in Weight 174 lb BMI 24.6 BP 124/76 Blood Pressure Location Lt brachial Position Sitting Respiration 18 Pulse 94 Pulse Source Pulse Oximeter Temp 98.1 F Temp Source Oral Pulse Oximetry (%) 97 Oxygen Delivery Method Room Air Intake Visit Reasons: 1 month follow up Allergies amoxicillin Adverse Reaction (Verified 10/24/24 13:35) yeast infection Medication List - Last Reconciled 10/24/24 by Marina Ruiz MD Symbicort 160-4.5 mcg/actuation (budesonide-formoterol) 2 puffs inhalation BID NS Ventolin HFA 90 mcg/actuation (albuterol sulfate) 2 puffs inhalation Q6H PRN NS Tobacco use date assessed: 09/16/24 Dental Screening Dental Screen Date: 09/16/24 HPI 1 month follow up HPI Details Patient presents for follow-up of intermittent palpitations. She reports symptoms resolved after patient started taking vitamin-D supplement. Holter and echocardiogram were normal. COPD is controlled on Symbicort PFSH Medical History Normal pelvic exam Annual physical exam History of mammogram Goiter Chronic asthma COPD (chronic obstructive pulmonary disease) Asthma HTN (hypertension) Surgical History No pertinent past surgical history Social History Housing: House Patient Tobacco Use Status: Former Tobacco user Years Smoked: 30 years e-Cigarette/Vaping Use: Never Used service: No Current occupational status: employed Cognitive needs: No Hearing needs: No Vision needs: Yes Questionnaire PHQ-9 Over the last 2 weeks, how often have you been bothered by any of the following problems? 1. Little interest or pleasure in doing things: not at all 2. Feeling down, depressed, or hopeless: not at all 3. Trouble falling or staying asleep, or sleeping too much: not at all 4. Feeling tired or having little energy: not at all 5. Poor appetite or overeating: not at all 6. Feeling bad about yourself - or that you are a failure or have let yourself or your family down: not at all 7. Trouble concentrating on things, such as reading the newspaper or watching television: not at all 8. Moving or speaking so slowly that other people could have noticed. Or the opposite - being so fidgety or restless that you have been moving around a lot more than usual: not at all 9. Thoughts that you would be better off or of hurting yourself in some way: not at all Total score: 0 Depression Screening Interpretation: Negative Depression Screening Done: Yes 50430 - PHQ-9 Billing: Yes Source: Developed by Drs. Quintin Gómez, Karyna Walton, Luis Escobedo and colleagues, with an educational lizzie from [employer] ?. Thrive Questionnaire Date Thrive assessed: 09/16/24 I am a: Patient What is your living situation today?: I choose not to answer this question Within the past 12 months, did the food you bought not last and you didn't have the money to get more?: I choose not to answer this question Within the past 12 months, did you worry whether your food would run out before you got money to buy more?: I choose not to answer this question Do you have trouble paying for medicines?: I choose not to answer this question Do you have trouble getting transportation to medical appointments?: I choose not to answer this question Do you have trouble paying your heating and electricity bill?: I choose not to answer this question Do you have trouble taking care of your child, family member or friend?: I choose not to answer this question Do you have trouble with day-to-day activities such as bathing, preparing meals, shopping, managing finances, etc.?: I choose not to answer this question Are you currently unemployed and looking for a job?: I choose not to answer this question Are you interested in more education?: I choose not to answer this question Please select the resources that you would like help with: None Currently or been in a relationship where the following occur: I choose not to answer THRIVE Score: 0 LANDRY-7 AMB Questionnaire LANDRY-7 Date LANDRY - 7 assessed: 09/16/24 Source: Developed by Drs. Quintin Gómez, Karyna Walton, Luis Escobedo and colleagues, with an educational lizzie from [employer] ?. Review of Systems Const All systems reviewed & are unremarkable except as noted in HPI and below Eyes Reports no additional complaints ENT Reports no additional complaints Card Reports no additional complaints Resp Reports no additional complaints GI Reports no additional complaints Physical exam (Primary Care) Vital Signs: Last Vital Signs Temp 98.1 F 10/24/24 13:32 Pulse 94 10/24/24 13:32 Resp 18 10/24/24 13:32 BP 124/76 10/24/24 13:32 Pulse Ox 97 10/24/24 13:32 Oxygen Delivery Method Room Air 10/24/24 13:32 BMI result Body Mass Index 24.6 Tobacco/Smoking Status: Tobacco use Status Tobacco use date assessed 09/16/24 10/24/24 13:36 Patient Tobacco Use Status Former Tobacco user 10/24/24 13:36 e-Cigarette/Vaping Use Never Used 10/24/24 13:36 Depression Screening Interpretation: Negative Thrive Assessment: Date of Thrive Assessment Date Thrive assessed 09/16/24 10/24/24 13:36 Currently or been in a relationship where the following occur: I choose not to answer Const General: no acute distress HENMT Head: Yes normal to inspection Face and sinus: Yes normal facial exam Eyes General: appearance normal, both eyes and all related structures Neck Neck: Yes supple Resp Effort & Inspection: normal respiratory effort Auscultation: clear to auscultation bilaterally Cardio Rhythm: regular rhythm Heart sounds: S1 normal heart sound present and S2 normal heart sound present Coding Level of Care Code Est Pt Level 4 (72053) Diagnoses Vitamin D deficiency E55.9 Hyperlipemia E78.5 COPD (chronic obstructive pulmonary disease) J44.9 Additional Codes PHQ-9 - 19020 - PHQ-9 Billing: Yes ([id number]) Assessment & Plan Assessment & Plan (1) Vitamin D deficiency: Code(s): E55.9 - Vitamin D deficiency, unspecified Category: Medical Plan: Continue vitamin-D supplement (2) Hyperlipemia: Code(s): E78.5 - Hyperlipidemia, unspecified Category: Medical Plan: Low-cholesterol diet increase exercise discussed with the patient check lipid profile in 1 month (3) COPD (chronic obstructive pulmonary disease): Code(s): J44.9 - Chronic obstructive pulmonary disease, unspecified Category: Medical Plan: Continue Symbicort Orders: Orders Vitamin D 25-OH Total 1 Month E55.9 - Vitamin D deficiency, unspecified Lipid Panel 1 Month E78.5 - Hyperlipidemia, unspecified Medications: Refilled Symbicort 160-4.5 mcg/actuation (budesonide-formoterol) 2 puffs inhalation BID 30.6 grams 6RF NS Ventolin HFA 90 mcg/actuation (albuterol sulfate) 2 puffs inhalation Q6H PRN 18 ea 4RF for wheezing NS
--- OUTSIDE RECORDS SUMMARY | 2024-10-24 14:08 | XMS_ITS | Clinical Summary ---
Author Organization [facility] Address [address] [place] [address] Phone Care Team Providers Care Credit Collections Analyst Name Role Phone Marina Ruiz MD Primary Care Provider [phone] Encounters Date Type Department Care Team Description 10/23/2024 Lab Requisition [facility] - Main Lab [address] [place] [address] Jessi Hu MD Encounter for gynecological examination (general) (routine) without abnormal findings from Last 3 Months Social History Tobacco Use Types Packs/Day Years Used Date Smoking Tobacco: Never Assessed Comments Unknown Sex and Gender Information Value Date Recorded Sex Assigned at Female 10/13/2024 12:01 PM EDT Legal Sex Female 8:44 PM EST Gender Identity Female 10/13/2024 12:01 PM EDT Sexual Orientation Straight 10/13/2024 12 :01 PM EDT Plan of Treatment Upcoming Encounters Date Type Department Care Team (Late st Contact Info) Description 11/01/2024 7:45 AM EDT Appointment [facility] [address] [place] [address] Health Maintenance Due Date Last Done Comments DTaP,Tdap,and Td Vaccines (1 - Tdap) 02/21/1983 Pneumococcal Vaccine: 50+ Ye ars (1 of 1 - PCV) 02/21/2014 Zoster Vaccines (1 of 2) 02/21/2014 Colorectal Cancer Screening: Colonoscopy 06/03/2022 Depression Screening 06/03/2022 HIV Screening 06/03/2022 Hepatitis C Screening 06/03/2022 Social Influencers of Health Screening 06/03/2022 Breast Cancer Screening 08/14/2023 08/14/2021 COVID-19 Vaccine ( - 2023-2 5 season) 2024 Influenza Vaccine (Season Ended) 2025 Cervical Cancer Screening: HPV 10/22/2029 10/22/2024 RSV Immunization Adult Patie nts (1 - [...] Procedure Name Priority Date/Time Associated Diagnosis Comments HPV WITH REFLEX GENOTYPE Routine 10/22/2024 12:00 AM EDT Encounter for gynecological examination (general) (routine) without abnormal findings [facility] SCREENING DIGITAL Routine 08/14/2021 12:15 PM EST Encounter for screening mammogram for malignant neoplasm of breast from Last 3 Months or Most Recently Relevant to Health Maintenance Results * HPV with reflex genotype (10/22/2024 12:00 AM EDT) HPV Negative Negative LAB MICROBIOLOGY METHOD 10/23/2024 2:14 PM EDT [facility] LAB Brushing/Spatula Cervix uteri structure / Unknown 10/22/2024 10/23/2024 6:31 AM EDT us Jessi Hu MD LAB MOLECULAR DIAGNOSTIC S ORDERABLES Final Result [facility] [place] [facility] [address] [place] [address], * [facility] SCREENING DIGITAL (08/14/2021 12:15 PM EST) Anatomical Region Laterality Modality Mammography 08/11/2021 9:20 AM EST Narrative 08/14/2021 12:15 PM EST [facility] Diagnostic Imaging Department [address] [place] [address] Patient: ??RONALDO GUILLEN ?/Age/Sex: 1965 - 56 - F Unit#: ??[id number] ? Location/Status: ??SPDIMAM/REG CLI ? Mnemonic/Ordering Site: ??DIGSC/SPMAM Ordering Physician: ??MARINA RUIZ MD Mehdi Screening Digital - 08/13/21838 History: Bilateral breast cancer screening. Technique: ??Digital mammography. Conventional CC and MLO projections with tomosynthesis MLO views and computer aided detection. Comparison: [facility] 09/26/2016 through 06/18/2010. Findings: ?? Breast tissue consists of fatty and fibroglandular elements (category b density) bilaterally (as calculated by [employer] software). There is no suspicious group of microcalcifications, mass, architectural distortion or suspicious change in breast tissue density. Impression: No evidence of malignancy. Breast cancer, if present, is more likely to be diagnosed at a smaller size and earlier stage with more frequent intervals of screening. ??Recommend annual or biennial mammography. BIRADS category 1; negative study, 3341F 27614, [address] Note: Patient information entered into a reminder system with a target due date for the next mammogram: ??CPT II 7025F Dictating Physician: ??JAE PAINAGUA MD Electronically Signed by: ??JAE PANIAGUA MD Dic Date/Time: ??08/14/21 1211 Sign date/Time: ??08/14/21 1215 Procedure Note Jae Paniagua MD - 06/21/2022 [facility] Diagnostic Imaging Department [address] [place] [address] Patient: MINDYRONALDOChoco Cruz D.O.B./Age/Sex: 1965 - 56 - F Unit#: [id number] Location/Status: [facility] Mnemonic/Ordering Site: [facility] Ordering Physician: MARINA RUIZ MD Mehdi Screening Digital - 08/13/21838 History: Bilateral breast cancer screening. Technique: Digital mammography. Conventional CC and MLO projectionswith tomosynthesis MLO views and computer aided detection. Comparison: [facility] 09/26/2016 through 06/18/2010. Findings: Breast tissue consists of fatty and fibroglandular elements (category b density) bilaterally (as calculated by [employer]). There is no suspicious group of microcalcifications, mass, architectural distortion or suspicious change in breast tissue density. Impression: No evidence of malignancy. Breast cancer, if present, is more likely to be diagnosed at a smallersize and earlier stage with more frequent intervals of screening. Recommend annualor biennial mammography. BIRADS category 1; negative study, 3341F 20[address], [address]7616 Note: Patient information entered into a reminder system with a target duedate for the next mammogram: CPT II 7025F Dictating Physician: JAE PANIAGUA MD Electronically Signed by: JAE PANIAGUA MD Dic Date/Time: 08/14/21 1211 Sign date/Time: 08/14/21 1215 Marina Ruiz MD IMG BI PROCEDURES Final Result from Last 3 Months or Most Recently Relevant to Health Maintenance Insurance [facility] [employer] Care Teams Credit Collections Analyst Relationship Specialty Start Date End Date Marina Ruiz MD [address] [place] [phone] PCP - General Internal Medicine 10/13/24
--- OUTSIDE RECORDS SUMMARY | 2024-10-24 14:08 | XMS_ITS | Encounter Summary ---
Author Organization [facility] Address [address] [place] [address] Care Team Providers Care Family Day Care Provider Name Role Phone Marina Ruiz MD Primary Care Provider [phone] Encounter Details Date Type Department Care Team (Latest Contact Info) Description 10/23/2024 Lab Requisition [facility] - Main Lab [address] [facility] [place] [address] Jessi Hu MD [address] [phone] Encounter for gynecological examination (general) (routine) without abnormal findings Social History Tobacco Use Types Packs/Day Years Used Date Smoking Tobacco: Never Assessed Comments Unknown Sex and Gender Information Value Date Recorded Sex Assigned at Female 10/13/2024 12:01 PM EDT Legal Sex Female 8:44 PM EST Gender Identity Female 10/13/2024 12:01 PM EDT Sexual Orientation Straight 10/13/2024 12 :01 PM EDT documented as of this encounter Plan of Treatment Upcoming Encounters Date Type Department Care Team (Late st Contact Info) Description 11/01/2024 7:45 AM EDT Appointment [facility] [address] [place] [address] Pending Results Name Type Priority Associated Diagnoses Date /Time Pap smear Pathology and Cytology Routine Encounter for gynecological examination (general) (routine) without abnormal findings 10/22/2024 12:00 AM EDT documented as of this encounter Procedures Procedure Name Priority Date/Time Associated Diagnosis Comments HPV WITH REFLEX GENOTYPE Routine 10/22/2024 12:00 AM EDT Encounter for gynecological examination (general) (routine) without abnormal findings documented in this encounter Results * HPV with reflex genotype (10/22/2024 12:00 AM EDT) HPV Negative Negative LAB MICROBIOLOGY METHOD 10/23/2024 2:14 PM EDT [facility] Brushing/Spatula Cervix uteri structure / Unknown 10/22/2024 10/23/2024 6:31 AM EDT us Jessi Hu MD LAB MOLECULAR DIAGNOSTIC S ORDERABLES Final Result [facility] [address] [place] [address], documented in this encounter Visit Diagnoses Diagnosis Encounter for gynecological examination (general) (routine) without abnormal findings Encounter for screening mammogram for breast cancer documented in this encounter Care Teams Family Day Care Provider Relationship Specialty Start Date End Date Marina Ruiz MD [address] [place] [address] PCP - General Internal Medicine 10/13/24 documented as of this encounter
--- OUTSIDE RECORDS SUMMARY | 2024-10-24 14:08 | XMS_ITS | Data Portability ---
Author Organization [facility], [address] Address [address] [place] [address] Assessment No assessment recorded. Plan of Treatment Reminders Order Date Submit Date Provider Last Modified By Organization Details Last Modified Time Details Appointments None recorded. Lab urinalysis, dipstick 2022 023 [email or web address], [address] [place], [address], 3 09:34:13 culture, urine 2022 023 [facility], [address] [place] [address], [place], [address], 3 06:08:40 Referral None recorded. Procedures None recorded. Surgeries None recorded. Imaging None recorded. Medication Orders Diflucan 150 mg tablet 2022 023 [id number] [address] [place], [address], 3 09:34:15 amoxicillin 875 mg-potassiu m clavulanate 125 mg tablet 2022 023 [email or web address] 5 [facility], [address] [place], [address], 3 08:47:27 prednisone 10 mg tablet 2022 023 [email or web address] 5 [facility], [address] [place], [address], 3 08:47:23 Patient TargetsNo targets recorded. Patient Instructions Encounter Date Encounter Id Patient Instructions Last Modified By Organization Details Last Modified Time 10/19/2022 [id number] Based on your presentation and exam, you [...] watery post nasal drip. 6. Saline Nasal [place] is recommended. Since an antibiotic was prescribed [...] notice immediate response. Thank you for using [employer] today, please feel free to contact our office if you have any questions or concerns. [email or web address] Not available 10/19/2022 15:23:00 Reason for Referral None Reported. Results Created Date Observation Date Name Description Value Unit Range Abnormal Flag Note LastModifiedBy Organization Detail LastModifiedTime 06/18/2006/19/2023 URINE CULTU RE, ROUTI NE urine culture, routine FINAL REPORT Not Available [facility] ([facility]) [address] [facility] [address], [place], [address], 06/20/2023 06:08:40 06/18/2006/19/2023 URINE CULTU RE, ROUTI NE result 1 NO GROWTH Not Available [facility] ([facility]) [address], [place], [address], 06/20/2023 06:08:40 06/18/2006/18/2023 urina lysis , dipst ick Unknown Analyte Light Yellow Not Available [address] [place], [address], 06/18/2023 08:52:16 06/18/2006/18/2023 urina lysis , dipst ick Unknown Analyte Slight ly Cloudy Not Available [address] [place], [address], 06/18/2023 08:52:16 06/18/2006/18/2023 urina lysis , dipst ick Unknown Analyte Negati ve Not Available [address] [place], [address], 06/18/2023 08:52:16 06/18/2006/18/2023 urina lysis , dipst ick Unknown Analyte Negati ve Not Available [address] [place], [address], 06/18/2023 08:52:16 06/18/2006/18/2023 urina lysis , dipst ick Unknown Analyte Negati ve Not Available [facility] [place], [address], 06/18/2023 08:52:16 06/18/2006/18/2023 urina lysis , dipst ick Unknown Analyte 1.010 Not Available [facility] [address] [place], [address], 06/18/2023 08:52:16 06/18/2006/18/2023 urina lysis , dipst ick Unknown Analyte Trace- intact Not Available [facility] [place], [address], 06/18/2023 08:52:16 06/18/2006/18/2023 urina lysis , dipst ick Unknown Analyte 6.0 Not Available [facility] [address] [place], [address], 06/18/2023 08:52:16 06/18/2006/18/2023 urina lysis , dipst ick Unknown Analyte Negati ve Not Available [address] [place], [address], 06/18/2023 08:52:16 06/18/2006/18/2023 urina lysis , dipst ick Unknown Analyte 0.2 E.U./d L Not Available [facility] [place], [address], 06/18/2023 08:52:16 06/18/2006/18/2023 urina lysis , dipst ick Unknown Analyte Negati ve Not Available [address] [place], [address], 06/18/2023 08:52:16 06/18/20 23 06/18/2023 urina lysis , dipst ick Unknown Analyte Negati ve Not Available [address] [place], [address], 06/18/2023 08:52:16 Result Notes None recorded. Problems Name Problem SNOMED Code Status Onset Date Resolution Date Notes Provider Name and Address Organization Details Recorded Time Asthma 294816307 Active FERNANDA Duong - [facility] 10/19/2022 [...] Updated DateTime 3 179.07 cm 25.2 kg/m2 85699.4 4 g 0 17 /min 98 /min [...] Updated DateTime 3 179.07 cm 24.9 kg/m2 80448.2 6 g 0 97.9 [degF] 19 /min [...] SNOMED-CT Code Diagnosis ICD10 Code Diagnosis Note [id number] [address] [facility] [address] [place] [address] 09/10/2020 11:49:02 09/10/2020 13:54:19 [id number] FERNANDA MAK [address] [facility] [address] [place] [address] 10/19/2022 14:53:17 10/19/2022 15:25:08 Acute sinusitis 95439097 J01.90 Per your request - the prednisone to help with the facial pressure and wheezing. You mention that this is what your PCP usually gives you. Wheezing 55236663 R06.2 Take your Symbicort and Nebulizer at home. Follow up if you have anyShortne ss of BreathFeve rIncreased Wheezing. [id number] Karoline Huerta NP [address] [facility] [address] [place] [address] 06/18/2023 08:04:50 06/18/2023 09:35:57 Dysuria 58488795 R30.0 You are going to be treated [...] Camarena Member ID Guarantor Name 09/10/2020 1 [facility] [id number] Twila Cota [id number] Twila Cota 10/19/2022 1 [facility] KYUNG Cota [id number] Twila Cota 06/18/2023 1 [facility] KYUNG Cota [id number] Twila Cota Notes Date Note Type Note [...] throat. FERNANDA MAK [address] [place], [address], [place] - [facility] 10/19/2022 15:25:02 3 [...] Huerta NP [address] [place], [address], [place] - [facility] 06/18/2023 09:34:53 OBGyn Episode No OBEpisode recorded.
== END 2024-10-24 13:59 | disposition home or self-care (01) ==
LOC: HO.HMCC 13:27
PROVIDERS: PCP Internal Medicine; Visit Provider Internal Medicine
DX: E55.9 Vitamin D deficiency, unspecified (principal); E78.5 Hyperlipidemia, unspecified; J44.9 Chronic obstructive pulmonary disease, unspecified

== ENCOUNTER → 2024-10-24 13:26 | Outpatient (BNVA) | payer OTHER, SELFPAY | PROVIDERS: PCP Internal Medicine; Visit Provider Internal Medicine | DX: E55.9 Vitamin D deficiency, unspecified (principal); E78.5 Hyperlipidemia, unspecified; J44.9 Chronic obstructive pulmonary disease, unspecified | CPT/HCPCS: 96127; 99212 ==

== ENCOUNTER 2025-01-22 08:07 | Outpatient (REF) | payer OTHER, SELFPAY ==
--- OUTSIDE RECORDS SUMMARY | 2025-01-22 08:13 | XMS_ITS | Data Portability ---
Author Organization [facility]DA [facility], [address] Address [address] [place] [address] Assessment No assessment recorded. Plan of Treatment Reminders Order Date Submit Date Provider Last Modified By Organization Details Last Modified Time Details Appointments None recorded. Lab urinalysis, dipstick 2022 023 [email or web address] [facility] [address], [address] [place], [address], 3 09:34:13 culture, urine 2022 023 [place] [facility] ([facility], [address] [place] [address], [place], [address], 3 06:08:40 Referral None recorded. Procedures None recorded. Surgeries None recorded. Imaging None recorded. Medication Orders Diflucan 150 mg tablet 2022 023 [facility]1291, [address] [place], [address], 3 09:34:15 amoxicillin 875 mg-potassiu m clavulanate 125 mg tablet 2022 023 yestrella 5 [facility], [address] [place], [address], 3 08:47:27 prednisone 10 mg tablet 2022 023 yestrella 5 [facility]1291, [address] [place], [address], 3 08:47:23 Patient TargetsNo targets recorded. Patient Instructions Encounter Date Encounter Id Patient Instructions Last Modified By Organization Details Last Modified Time 10/19/2022 [id number] Based on your presentation and exam, you [...] watery post nasal drip. 6. Saline Nasal [place] is recommended. Since an antibiotic was prescribed [...] notice immediate response. Thank you for using [facility] today, please feel free to contact our office if you have any questions or concerns. [email or web address] Not available 10/19/2022 15:23:00 Reason for Referral None Reported. Results Created Date Observation Date Name Description Value Unit Range Abnormal Flag Note LastModifiedBy Organization Detail LastModifiedTime 06/18/20 23 06/19/2023 URINE CULTU RE, ROUTI NE urine culture, routine FINAL REPORT Not Available [facility] ([facility]) [address] [place], [address], 06/20/2023 06:08:40 06/18/20 23 06/19/2023 URINE CULTU RE, ROUTI NE result 1 NO GROWTH Not Available [facility] ([facility]) [address] [facility], [place], [address], 06/20/2023 06:08:40 06/18/20 23 06/18/2023 urina lysis , dipst ick Unknown Analyte Light Yellow Not Available [address] [place], [address], 06/18/2023 08:52:16 06/18/2006/18/2023 urina lysis , dipst ick Unknown Analyte Slight ly Cloudy Not Available [address] [place], [address], 06/18/2023 08:52:16 06/18/2006/18/2023 urina lysis , dipst ick Unknown Analyte Negati ve Not Available [address] [place], [address], 06/18/2023 08:52:16 06/18/2006/18/2023 urina lysis , dipst ick Unknown Analyte Negati ve Not Available [address] [place], [address], 06/18/2023 08:52:16 06/18/2006/18/2023 urina lysis , dipst ick Unknown Analyte Negati ve Not Available [address] [place], [address], 06/18/2023 08:52:16 06/18/2006/18/2023 urina lysis , dipst ick Unknown Analyte 1.010 Not Available [address] [facility] [address] [place], [address], 06/18/2023 08:52:16 06/18/2006/18/2023 urina lysis , dipst ick Unknown Analyte Trace- intact Not Available [facility] [place], [address], 06/18/2023 08:52:16 06/18/2006/18/2023 urina lysis , dipst ick Unknown Analyte 6.0 Not Available [facility] [address] [place], [address], 06/18/2023 08:52:16 06/18/2006/18/2023 urina lysis , dipst ick Unknown Analyte Negati ve Not Available [address] [place], [address], 06/18/2023 08:52:16 06/18/2006/18/2023 urina lysis , dipst ick Unknown Analyte 0.2 E.U./d L Not Available [facility] [place], [address], 06/18/2023 08:52:16 06/18/2006/18/2023 urina lysis , dipst ick Unknown Analyte Negati ve Not Available [address] [place], [address], 06/18/2023 08:52:16 06/18/20 23 06/18/2023 urina lysis , dipst ick Unknown Analyte Negati ve Not Available [address] [place], [address], 06/18/2023 08:52:16 Result Notes None recorded. Problems Name Problem SNOMED Code Status Onset Date Resolution Date Notes Provider Name and Address Organization Details Recorded Time Asthma 310011987 Active FERNANDA Duong - [facility] 10/19/2022 [...] in Arterial blood by Pulse oximetry Systolic And Diastolic Provider Name and Address Organization Details Last Updated DateTime 3 179.07 cm 25.2 kg/m2 32030.4 4 g 0 17 /min 98 /min 97.3 [degF] 99 % 99 % 137/73 mm[Hg] MADELINE MICHAEL - [facility] 3 15:09:12 Date Recorded Body height Body mass index (BMI) Body weight Pain severity - 0-10 verbal numeric rating [Score] - Reported Body temperature Respiratory rate Heart rate Systolic And Diastolic Provider Name and Address Organization Details Last Updated DateTime 3 179.07 cm 24.9 kg/m2 82455.2 6 g 0 97.9 [degF] 19 /min 82 /min 134/79 mm[Hg] Ashlee Alicia PA - [facility] 3 08:54:24 Social History Question Answer Notes LastModified by [employer] Details LastModified Time Tobacco Smoking Status Current Every Day Smoker MADELINE viramontes PA - [facility] 10/19/2022 15:06:27 Have You Had A Flu Shot This [...] Smoke? 0.5 PPD Information not available 10/19/2022 Have You Recently Traveled Abroad? No Information not available 10/19/2022 Sex: Unknown Functional Status Question Answer Note LastModified by [employer] Details LastModified Time Do you use any illicit or recreational drugs? No Information not available 10/19/2022 Do you or have you ever used any other forms of tobacco or nicotine? No Information not available 10/19/2022 What is your level of alcohol consumption? None Information not available 10/19/2022 Mental Status None recorded. Family History Relationship [...] SNOMED-CT Code Diagnosis ICD10 Code Diagnosis Note [id number] [address] [facility] [address] [facility] [place] [address] 09/10/2020 11:49:02 09/10/2020 13:54:19 [id number] FERNANDA MAK [facility] [address] [place] [address] 10/19/2022 14:53:17 10/19/2022 15:25:08 Acute sinusitis 96143059 J01.90 Per your request - the prednisone to help with the facial pressure and wheezing. You mention that this is what your PCP usually gives you. Wheezing 20532918 R06.2 Take your Symbicort and Nebulizer at home. Follow up if you have anyShortne ss of BreathFeve rIncreased Wheezing. [id number] Karoline Huerta NP [address] [place] [address] 06/18/2023 08:04:50 06/18/2023 09:35:57 Dysuria 29201485 R30.0 You are going to be treated [...] was prescribed . Thank you for using [facility] - please don't hesistate to call our office if you have any questions or concerns. Health Concerns Section Related Observation LastModified by Organization Detai ls LastModified Time None Recorded Concern Status LastModified by Organization Details LastModified Time None Recorded Advance Directives Directive None Recorded Payers Insurance Date Sequence Insurance Name Policy Number Policy Camarena Covered Member ID Camarena Member ID Guarantor Name 06/18/2023 1 [facility] Twila M Cipriano [id number] Twila Cota 10/19/2022 1 [facility] Twila Anthony Cipriano [id number] Twila Anthony Cipriano 10/19/2022 1 MEDICAID-[place]: [facility] Twila Anthony Cipriano [id number] Twila Cota 10/19/2022 1 [facility] [id number] Twila M Cipriano [id number] Twila Anthony Cipriano Notes Date Note Type Note Provider Name and Address Organization Details Recorded Time 3 text/htm l Sinus Complaints UCReported by PatientHPIFor associated symptoms, patient reportsnasal discharge from both nostrils,nasal passage blockage bilaterally, andcoughbut reportsno fever,no difficulty breathing,no nausea or vomiting, andno sore throat. For context, patient reportsworse with seasonal allergen exposure. For location, patient reportsleft sideandright side. For onset/timing, patient reportsinitially started 3weeks agoandprogressively worse over last 6days. For alleviating factors, (benedryl).The patient has bad allergies. She states that [...] reports no ear pain or sore throat. CongestionReported by Patient FERNANDA MAK [address] [place], [address], [place] [facility] 10/19/2022 15:25:02 3 text/htm l UTI female UCReported by PatientUrinary problemsFor uti symptoms, patient reportsurgencyandburning sensation during urinationbut reportsno blood in the urine,no vaginal discharge,no pain in the flank,no fever/chills,no incontinence, andno recurrent uti. For source of patient information, patient reportsinformation obtained from patientandpatient arrived at urgent care ambulatory. For severity, patient reportsmoderate. For duration, patient reportsstarted ___and2 weeks. For modifying factors, patient reportsnothing gives relief. UTI went across the street and was diagnosed with UTI. they gave you treatment, treatment failed. UTI symptoms still present. (1 month ago) went back about 2 weeks ago. with the same symptoms. Karoline Huerta NP [address] [place], [address], [facility] 06/18/2023 09:34:53 OBGyn Episode No OBEpisode recorded.
--- OUTSIDE RECORDS SUMMARY | 2025-01-22 08:13 | XMS_ITS | Clinical Summary ---
Author Organization [facility] Address [address] [place] [address] Phone Care Team Providers Care Rn Operating Room Name Role Phone Marina Ruiz MD Primary Care Provider [phone] Encounters Date Type Department Care Team Description 11/01/2024 7:38 AM EDT - 11/01/2024 11:59 PM EDT [facility] [address] [id number] Encounter for screening mammogram for breast cancer Discharge Disposition: Home or Self Care from Last 3 Months Social History Tobacco Use Types Packs/Day Years Used Date Smoking Tobacco: Never Assessed Tobacco Cessation:Counseling Given: No Comments No Sex and Gender Information Value Date Recorded Sex Assigned at Female 10/13/2024 12:01 PM EDT Legal Sex Female 8:44 PM EST Gender Identity Female 10/13/2024 12:01 PM EDT Sexual Orientation Straight 10/13/2024 12 :01 PM EDT Obstetrics History Para Term AB IAB SAB Ectopic Multiple Livin g Live Births 3 Last Filed Vital Signs Vital Sign Reading Time Taken Comments Blood Pressure - - Pulse - - Temperature - - Respiratory Rate - - Oxygen Saturation - - Inhaled Oxygen Concentration - - Weight 78.5 kg (173 lb) 11/01/2024 7:43 AM EDT Height 177.8 cm (5' 10 ) 11/01/2024 7:43 AM EDT Body Mass Index 24.82 11/01/2024 7:43 AM EDT Plan of Treatment Health Maintenance Due Date Last Done Comments Pneumococcal Vaccine: 50+ Years (1 of 2 - PCV) 02/21/1983 Zoster Vaccines (1 of 2) 02/21/2014 DTaP,Tdap,and Td Vaccines (2 - Td or Tdap) 05/02/2022 05/02/2012 Colorectal Cancer Screening: Colonoscopy 06/03/2022 HIV Screening 06/03/2022 Hepatitis C Screening 06/03/2022 Social Influencers of Health Screening 06/03/2022 RSV Immunization Adult Patients (1 - Risk 60-74 years 1-dose series) 2024 COVID-19 Vaccine (1 - 2023-2 5 season) 2024 Depression Screening 07/02/2024 Influenza Vaccine (#1) 2025 Breast Cancer Screening 11/01/2026 11/02/19 25, 08/14/2021 Cervical Cancer Screening: HPV 10/22/2029 10/22/2024 HIB Vaccines Aged Out No longer eligi [...] to complete this topic RSV Immunization Patients Under 20 months Aged Out No longer eligible b ased on patient's age to complete this topic Varicella Vaccines Aged Out No longer eligible based on patient's age to complete this topic Procedures Procedure Name Priority Date/Time Associated Diagnosis Comments MG MAMMO DIGITAL SCREENING W JOHNATHAN BILAT Routine 11/01/2024 7:51 AM EDT Encounter for screening mammogram for breast cancer HPV WITH REFLEX GENOTYPE Routine 10/22/2024 12:00 AM EDT Encounter for gynecological examination (general) (routine) without abnormal findings from Last 3 Months or Most Recently Relevant to Health Maintenance Results * MG Mammo Digital Screening w Johnathan bilat (11/01/2024 7:51 AM EDT) Anatomical Region Laterality Modality Breast Bilateral Mammography 11/03/2024 6:59 AM EDT Impressions 11/03/2024 7:07 AM EDT No mammographic evidence of malignancy. No suspicious interval change. A negative mammogram in the presence of a clinically suspicious palpable abnormality does not preclude the possibility of malignancy or alter the indications for biopsy. ASSESSMENT: BI-RADS 2: BENIGN RECOMMENDATION(S): 1: Routine screening mammogram BILATERAL in 1 year. [facility] at [address], [address] -------- FINAL REPORT -------- Dictated By: Venu Daniels Dictated Date: 11/03/2024 06:59 ET Assigned Physician: Venu Daniels Reviewed and Electronically Signed By: Venu Daniels Signed Date: 11/03/2024 07:07 ET Workstation ID: [id number] Transcribed By: Self Edit Transcribed Date: 11/03/2024 06:59 ET Narrative 11/03/2024 7:07 AM EDT EXAM: SCREENING MAMMOGRAPHY, BILATERAL HISTORY: SCREENING. No additional history. COMPARISON: 08/13/21 TECHNIQUE: Synthesized CC and MLO projections of each breast. Tomosynthesis of each breast in the CC and MLO projections. ADDITIONAL IMAGING: None Computer-aided detection was employed with the [employer] 3-D. TISSUE DENSITY: There are scattered areas of fibroglandular density. (BI-RADS category B) FINDINGS: RIGHT BREAST: No suspicious mass. No suspicious calcification. No distortion. No additional suspicious right breast findings LEFT BREAST: There is no definite change and a 0.5 cm low-density oval mass at the 1 o'clock position 7 cm from the left nipple. No additional suspicious left breast findings Procedure Note Venu Daniels MD - 11/03/2024 EXAM: SCREENING MAMMOGRAPHY, BILATERAL HISTORY: SCREENING. No additional history. COMPARISON: 08/13/21 TECHNIQUE: Synthesized CC and MLO projections of each breast.Tomosynthesis of each breast in the CC and MLO projections. ADDITIONAL IMAGING: None Computer-aided detection was employed with the [employer] 3-D. TISSUE DENSITY: There are scattered areas of fibroglandular density.(BI-RADS category B) FINDINGS: RIGHT BREAST: No suspicious mass. No suspicious calcification. No distortion. Noadditional suspicious right breast findings LEFT BREAST: There is no definite change and a 0.5 cm low-density oval mass at the 1o'clock position 7 cm from the left nipple. No additional suspicious leftbreast findings IMPRESSION: No mammographic evidence of malignancy. No suspicious interval change. A negative mammogram in the presence of a clinically suspicious palpableabnormality does not preclude the possibility of malignancy or alter theindications for biopsy. ASSESSMENT: BI-RADS 2: BENIGN RECOMMENDATION(S): 1: Routine screening mammogram BILATERAL in 1 year. [facility] [address] [place], [address] -------- FINAL REPORT -------- Dictated By: Venu Daniels Dictated Date: 11/03/2024 06:59 ET Assigned Physician: Venu Daniels Reviewed and Electronically Signed By: Venu Daniels Signed Date: 11/03/2024 07:07 ET Workstation ID: [id number] Transcribed By: Self Edit Transcribed Date: 11/03/2024 06:59 ET us Self Referral Sppl IMG BI PROCEDURES Final Resul t * HPV with reflex genotype (10/22/2024 12:00 AM EDT) HPV Negative Negative LAB MICROBIOLOGY METHOD 10/23/2024 2:14 PM EDT [facility] Brushing/Spatula Cervix uteri structure / Unknown 10/22/2024 10/23/2024 6:31 AM EDT Jessi Hu MD LAB MOLECULAR DIAGNOSTIC S ORDERABLES Final Result [facility] [address] [place] [address], from Last 3 Months or Most Recently Relevant to Health Maintenance Insurance [employer] Care Teams Rn Operating Room Relationship Specialty Start Date End Date Marina Ruiz MD [address] [place] [address] PCP - General Internal Medicine 10/13/24
[2025-01-22 10:53] LABS: Cholesterol 223 mg/dL (<200); HDL Cholesterol 62 mg/dL (>40); Triglycerides 71 mg/dL (<150)
== END 2025-01-22 08:08 | disposition home or self-care (01) ==
LOC: HO.HMGCLDS 08:07
PROVIDERS: PCP Internal Medicine; Visit Provider Internal Medicine
DX: E55.9 Vitamin D deficiency, unspecified (principal); E78.5 Hyperlipidemia, unspecified
CPT/HCPCS: 36415; 80061; 82306